=== PATIENT | male | born 1990 | race Hispanic/Latino ===

== ENCOUNTER 2024-03-04 12:02 | Emergency (ER) | payer OTHER ==
[~2024-03-04] VITALS: Ht 170.2 cm; Wt 75.7 kg
[~2024-03-04 12:02] MED LIST: BACTRIM DS TAB1 EACH PO; CEPHALEXIN500 M1 PO; HYDROCODON-ACE1 EA10 PO; IBU800 MG PO; OLANZAPINE-FLU1 EACH PO
[2024-03-04] MEDS ORDERED: SODIUM CHLORIDE 0.9% 1,000 ML IV PRN ×2 (12:30→13:00)
[2024-03-04 12:41] LABS: BASOPHILS 0.3 % (0-2); HEMATOCRIT 39.4 % (35.0-50.0); HEMOGLOBIN 13.3 g/dL (12.0-18.0); LYMPHOCYTES 3.2 % (24-44); MCHC 33.7 g/dl (30-36); MCV 88.9 fl (81-99); MONOCYTES 2.6 % (0-12); NEUTROPHILS 93.9 % (39-80); PLATELET COUNT 154 K/uL (140-440); RBC 4.43 M/ul (4.3-5.7); RDW 13.3 (10.5-15.0)
[2024-03-04 12:42] LABS: INR 1.22 (0.80-1.30); PARTIAL THROMBOPLASTIN TIME 35.9 Sec (22.9-41.3); PROTIME 14.7 Sec (11.2-14.2)
[2024-03-04 12:45] LABS: ALBUMIN 3.8 g/dL (3.4-5.0); ALBUMIN/GLOBULIN RATIO 1.03 (1.1-2.4); ANION GAP 13.2 (7-21); BILIRUBIN, TOTAL 0.5 ng/dL (0.2-1.0); BUN/CREATININE RATIO 8.51 (6.0-28.6); CALCIUM 8.6 mg/dL (8.5-10.1); CREATININE, SERUM 0.94 mg/dL (0.70-1.30); POTASSIUM 4.2 mmol/L (3.5-5.1); PROTEIN, TOTAL 7.5 g/dL (6.4-8.2)
[2024-03-04] MEDS ORDERED: CEFTRIAXONE/SODIUM CHLORIDE 2 GM/100 ML PIGGYBACK IV ONE (12:45)
[2024-03-04] MEDS ORDERED: DAPTOmycin 500 MG/10 ML VIAL IV ONE ×2 (12:45→13:00)
[2024-03-04] MEDS ORDERED: KETOROLAC TROMETHAMINE 30 MG/ML VIAL IV ONE (12:45)
[2024-03-04 12:48] LABS: LACTIC ACID, BLOOD 0.7 mmol/L (0.4-2.0)
[2024-03-04] MEDS ORDERED: HYDROmorphone HCL 1 MG/ML SYR IV ONE (13:15)
[2024-03-04] MEDS ORDERED: CLEOCIN HCL300 MG PO (15:24)
[2024-03-04] MEDS ORDERED: BACTRIM DS TAB1 EACH PO (15:24)
[2024-03-04] MEDS ORDERED: KETOROLAC TROME10 MG PO (15:25)
[2024-03-04 15:39] VITALS: BP 107/53
== END 2024-03-04 15:35 | disposition home or self-care (01) ==
LOC: ED 12:02
PROVIDERS: Emergency Medicine
DX: L03.116 Cellulitis of left lower limb (principal)
CPT/HCPCS: 36415; 80053; 83605; 85025; 85610; 85730; 93971; 96365; 96375; 99284-25; J0696; J0878; J1170; J1885; J7030

== ENCOUNTER 2024-04-25 10:19 | Emergency (ER) | payer OTHER ==
[~2024-04-25] VITALS: Ht 170.2 cm; Wt 74.7 kg
[~2024-04-25 10:19] MED LIST changes: +CLEOCIN HCL300 MG PO; +KETOROLAC TROME10 MG PO
[2024-04-25 11:19] LABS: BASOPHILS 0.2 % (0-2); HEMATOCRIT 40.7 % (35.0-50.0); HEMOGLOBIN 13.8 g/dL (12.0-18.0); LYMPHOCYTES 4.5 % (24-44); MCH 30.2 (27-36); MCHC 33.9 g/dl (30-36); MONOCYTES 5.5 % (0-12); NEUTROPHILS 89.8 % (39-80); PLATELET COUNT 163 K/uL (140-440); RBC 4.57 M/ul (4.3-5.7); RDW 13.7 (10.5-15.0)
[2024-04-25] MEDS ORDERED: clindamycin HCL 300 MG CAP PO ONE (11:30)
[2024-04-25] MEDS ORDERED: DOXYCYCLINE HYCLATE 100 MG CAP PO ONE (11:30)
[2024-04-25 11:31] LABS: ALBUMIN 3.8 g/dL (3.4-5.0); ANION GAP 11.9 (7-21); BILIRUBIN, TOTAL 0.4 ng/dL (0.2-1.0); BUN/CREATININE RATIO 9.18 (6.0-28.6); CALCIUM 8.7 mg/dL (8.5-10.1); CREATININE, SERUM 0.98 mg/dL (0.70-1.30); POTASSIUM 3.9 mmol/L (3.5-5.1); PROTEIN, TOTAL 7.6 g/dL (6.4-8.2)
[2024-04-25 11:33] LABS: LACTIC ACID, BLOOD 1.2 mmol/L (0.4-2.0)
[2024-04-25] MEDS ORDERED: IBUPROFEN 600 MG TAB PO ONE (11:45)
[2024-04-25] MEDS ORDERED: ACETAMINOPHEN 500 MG TAB PO ONE (11:45)
[2024-04-25] MEDS ORDERED: KETOROLAC TROME10 MG PO (12:28)
[2024-04-25] MEDS ORDERED: CLINDAMYCIN HC150 MG PO (12:28)
[2024-04-25] MEDS ORDERED: DOXYCYCLINE HY100 MG PO (12:28)
[2024-04-25 12:34] VITALS: BP 124/86
== END 2024-04-25 12:36 | disposition home or self-care (01) ==
LOC: ED 10:19
PROVIDERS: Emergency Medicine
DX: L03.116 Cellulitis of left lower limb (principal)
CPT/HCPCS: 36415; 80053; 83605; 85025; 99283; A9270

== ENCOUNTER 2024-05-03 10:40 | Emergency (ER) | payer OTHER ==
[~2024-05-03] VITALS: Ht 170.2 cm; Wt 75.6 kg
[~2024-05-03 10:40] MED LIST changes: +CLINDAMYCIN HC150 MG PO; +DOXYCYCLINE HY100 MG PO
--- OUTSIDE RECORDS SUMMARY | 2024-05-03 10:46 | XMS ---
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 E.D. VISIT COUNT (12 MO.) [address] [facility] TOTAL 5 NOTE: Visits indicate total known visits. ED/UCC VISIT TRACKING (12 MO.) 05/03/2024 10:40 [facility] TYPE: Emergency COMPLAINT: - HEAD INJURY 04/25/2024 10:20 [facility] TYPE: Emergency COMPLAINT: - LT LEG PAIN DIAGNOSES: - Cellulitis of left lower limb - Chills (without fever) - Localized swelling, mass and lump, left lower limb 03/04/2024 12:02 [facility] TYPE: Emergency COMPLAINT: - LEG SWELLING DIAGNOSES: - Cellulitis of left lower limb 10/14/2023 05:35 [facility] TYPE: Emergency COMPLAINT: - LT LEG PAIN DIAGNOSES: - Cellulitis of left lower limb - Erythematous condition, unspecified 10/12/2023 22:02 [facility] TYPE: Emergency COMPLAINT: - WOUND CHECK DIAGNOSES: - Cellulitis of left lower limb - Cellulitis of unspecified part of limb - Pain in leg, unspecified INPATIENT VISIT TRACKING (12 MO.) No inpatient visits to display in this time frame [email or web address]
[2024-05-03 13:09] VITALS: BP 136/93
== END 2024-05-03 13:09 | disposition home or self-care (01) ==
LOC: ED 10:40
DX: R44.1 Visual hallucinations (principal); R44.0 Auditory hallucinations
CPT/HCPCS: 70450; 99283-25

== ENCOUNTER 2024-09-07 05:41 | Emergency (ER) | payer OTHER ==
[~2024-09-07] VITALS: Ht 170.2 cm; Wt 83.0 kg
[2024-09-07] MEDS ORDERED: PALIPERIDONE ER6 MG PO (05:50)
[2024-09-07 06:16] LABS: BASOPHILS 1.4 % (0-2); EOSINOPHILS 2.7 % (0-6); HEMATOCRIT 38.4 % (35.0-50.0); HEMOGLOBIN 13.2 g/dL (12.0-18.0); LYMPHOCYTES 26.1 % (24-44); MCH 30.4 (27-36); MCHC 34.3 g/dl (30-36); MCV 88.6 fl (81-99); MONOCYTES 14.2 % (0-12); NEUTROPHILS 55.6 % (39-80); PLATELET COUNT 184 K/uL (140-440); RBC 4.33 M/ul (4.3-5.7)
[2024-09-07 07:12] VITALS: BP 120/68
== END 2024-09-07 07:12 | disposition home or self-care (01) ==
LOC: ED 05:41
PROVIDERS: Family Medicine
DX: L03.116 Cellulitis of left lower limb (principal); Z79.899 Other long term (current) drug therapy
CPT/HCPCS: 36415; 85025; 86140; 99283

== ENCOUNTER 2024-10-23 02:25 | Emergency (ER) | payer OTHER ==
[~2024-10-23] VITALS: Ht 170.2 cm; Wt 77.5 kg
[~2024-10-23 02:25] MED LIST changes: +PALIPERIDONE ER6 MG PO
--- OUTSIDE RECORDS SUMMARY | 2024-10-23 02:28 | XMS ---
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 E.D. VISIT COUNT (12 MO.) 6 [facility] TOTAL 7 NOTE: Visits indicate total known visits. ED/UCC VISIT TRACKING (12 MO.) 10/23/2024 02:26 [facility] TYPE: Emergency COMPLAINT: - POSS CELLULITIS 09/30/2024 10:26 [facility] [place] (Gayle Araujo) TYPE: Emergency DIAGNOSES: - Pain in left ankle and joints of left foot - Foot Pain - left leg pain [facility]24 [facility] COMPLAINT: - LT FOOT PAIN 09/07/2024 05:41 [facility] COMPLAINT: - LEG PAIN DIAGNOSES: - Cellulitis of left lower limb - Other skilled nursing (current) drug therapy - Pain in left leg 05/03/2024 10:40 [facility] [place] TYPE: Emergency COMPLAINT: - HEAD INJURY DIAGNOSES: - Auditory hallucinations - Visual hallucinations 04/25/2024 10:20 [facility] TYPE: Emergency COMPLAINT: - LT LEG PAIN DIAGNOSES: - Cellulitis of left lower limb - Chills (without fever) - Localized swelling, mass and lump, left lower limb 03/04/2024 12:02 [facility] TYPE: Emergency COMPLAINT: - LEG SWELLING DIAGNOSES: - Cellulitis of left lower limb INPATIENT VISIT TRACKING (12 MO.) No inpatient visits to display in this time frame [email or web address]
[2024-10-23 02:54] LABS: BASOPHILS 0.5 % (0-2); EOSINOPHILS 0.5 % (0-6); HEMOGLOBIN 12.6 g/dL (12.0-18.0); LYMPHOCYTES 14.2 % (24-44); MCH 29.7 (27-36); MCHC 34.1 g/dl (30-36); MCV 87.2 fl (81-99); MONOCYTES 7.6 % (0-12); NEUTROPHILS 77.2 % (39-80); PLATELET COUNT 131 K/uL (140-440); RBC 4.25 M/ul (4.3-5.7); RDW 13.9 (10.5-15.0)
[2024-10-23] MEDS ORDERED: TRIMETHOPRIM/SULFAMETHOXAZOLE 1 EA TAB PO ONE (03:00)
[2024-10-23] MEDS ORDERED: BACTRIM DS TAB1 EACH PO (03:05)
[2024-10-23 03:11] LABS: ALBUMIN 3.5 g/dL (3.4-5.0); ALBUMIN/GLOBULIN RATIO 1.06 (1.1-2.4); ANION GAP 7.7 (7-21); BILIRUBIN, TOTAL 0.3 mg/dL (0.2-1.0); BUN/CREATININE RATIO 12.5 (6.0-28.6); CALCIUM 8.4 mg/dL (8.5-10.1); CREATININE, SERUM 0.96 mg/dL (0.70-1.30); POTASSIUM 3.7 mmol/L (3.5-5.1); PROTEIN, TOTAL 6.8 g/dL (6.4-8.2)
[2024-10-23 03:24] VITALS: BP 131/87
== END 2024-10-23 03:20 | disposition home or self-care (01) ==
LOC: ED 02:25
PROVIDERS: Internal Medicine
DX: L03.116 Cellulitis of left lower limb (principal)
CPT/HCPCS: 36415; 80053; 84550; 85025; 99283; A9270